=== PATIENT | female | born 1980 | race Caucasian/White ===

== ENCOUNTER 2018-07-07 08:01 | Emergency (ER) | payer SELFPAY ==
[~2018-07-07] VITALS: Ht 167.6 cm; Wt 80.2 kg
[2018-07-07 08:04] VITALS: BP 117/72; PULSE 95; RESP 18; Ht 167.6 cm; Wt 80.2 kg
[2018-07-07] MEDS ORDERED: OXYC-279 PO (08:29)
[2018-07-07] MEDS ORDERED: VALA500T PO (08:29)
[2018-07-07] MEDS ORDERED: OXYCODONE/ACETAMINOPHEN (5/325) TAB PO ONE (08:30)
--- NOTE | 2018-07-07 08:39 | ERD ---
ER Documentation Chief Complaint Chief Complaint rash, blisters on left side of shoulder and upper back HPI 38-year-old female presents with complaint of rash with blisters over the left side of her neck, shoulder, and upper back. States that she noticed it 2 days ago. States that is been getting worse since then. States that it is painful. Has had chickenpox as a child. Denies any treatments. Denies any allergies to medications. Denies any medical problems. Denies any fevers, chills, vision problems, hearing problems, facial paralysis, tinnitus, pain in her ear. ROS All systems reviewed and are negative except as per history of present illness. Medications Home Meds Active Scripts Prednisone* (Prednisone*) 20 Mg Tab, 40 MG PO BID for 5 Days, TAB Prov:ROBINSON FRAGA 07/07/18 valAcyclovir Hcl* (valACYclovir Hcl*) 500 Mg Tablet, 1000 MG PO TID for herpes zoster for 7 Days, TAB Prov:ROBINSON FRAGA 07/07/18 Oxycodone HCl/Acetaminophen (Percocet 5-325 mg Tablet) 1 Each Tablet, 1-2 EACH PO Q6 for herpes zoster, #10 TAB Prov:ROBINSON FRAGA 07/07/18 Allergies Allergies: Coded Allergies: No Known Allergy (Verified Allergy, Unknown, 09/30/06) PMhx/Soc Medical and Surgical Hx: pt denies Medical Hx History of Surgery: Yes (Tubal ligation, appendectomy) Anesthesia Reaction: No Hx Alcohol Use: No (denies ) Hx Substance Use: No (denies) Hx Tobacco Use: No (denies) Smoking Status: Never smoker FmHx Family History: No diabetes, No coronary disease, No other Physical Exam Vitals Vital Signs Date Temp Pulse Resp B/P (MAP) Pulse Ox O2 O2 Flow FiO2 Time Delivery Rate 07/07/18 98.1 95 18 117/72 98 08:04 (87) Physical Exam Const: No acute distress Head: Atraumatic Eyes: Normal Conjunctiva ENT: Normal External Ears, Nose and Mouth. Nose exhibits no lesions. TMs are pearly irvin and nonbulging bilaterally. There is no erythema or sign of rash in the ear canal or eardrum. TMs are nonedematous erythematous bilaterally. Neck: Full range of motion. No meningismus. Resp: Clear to auscultation bilaterally Cardio: Regular rate and rhythm, no murmurs Abd: Soft, non tender, non distended. Normal bowel sounds Skin: Vesicular lesions on erythematous base located over the left side of her neck, left shoulder, and upper back. Back: No midline or flank tenderness Ext: No cyanosis, or edema Neur: Awake and alert. EOMs 1 through 12 intact. Psych: Normal Mood and Affect Results 24 hrs Laboratory Tests Test 07/07/18 08:43 POC Beta HCG, Qualitative NEGATIVE Current Medications Medications Dose Sig/Dino Start Time Status Last (Trade) Ordered Route PRN Stop Time Admin Dose Reason Admin Oxycodone/ 1 tab ONCE ONCE 07/07/18 DC 07/07/18 Acetaminophen PO 08:30 08:42 (Percocet 07/07/18 08:31 (5/ 325)) Procedures/MDM MDM: Patient's presentation was consistent with herpes zoster. Since the rash was close to the ear there was concern about it becoming herpes zoster onychosis therefore patient was prescribed steroids in addition to valacyclovir. I have low suspicion for herpes zoster ophthalmicus, SSS, Kawasaki disease, scarlet fever, necrotizing fasciitis, sepsis, gangrene, Sam-Jt syndrome, toxic epidural necrolysis, abscess, cellulitis, anaphylaxis, allergic reaction. Patient discharged with strict ER precautions. Patient advised to follow up with PMD. All questions answered at discharge. Departure Diagnosis: Primary Impression: Herpes zoster Herpes zoster complications: without complications Qualified Codes: B02.9 - Zoster without complications Condition: Stable Patient Instructions: Shingles (Herpes Zoster) Referrals: [facility] YOU HAVE RECEIVED A MEDICAL SCREENING EXAM AND THE RESULTS INDICATE THAT YOU DO NOT HAVE A CONDITION THAT REQUIRES URGENT TREATMENT IN THE EMERGENCY DEPARTMENT. FURTHER EVALUATION AND TREATMENT OF YOUR CONDITION CAN WAIT UNTIL YOU ARE SEEN IN YOUR DOCTORS OFFICE WITHIN THE NEXT 1-2 DAYS. IT IS YOUR RESPONSIBILITY TO MAKE AN APPOINTMENT FOR FOLOW-UP CARE. IF YOU HAVE A PRIMARY DOCTOR --you should call your primary doctor and schedule an appointment IF YOU DO NOT HAVE A PRIMARY DOCTOR YOU CAN CALL OUR PHYSICIAN REFERRAL HOTLINE AT IF YOU CAN NOT AFFORD TO SEE A PHYSICIAN YOU CAN CHOSE FROM THE FOLLOWING [facility] [id number] [address] [facility] [address] [facility] [address] [facility] [address] [facility]. [facility] [address] Additional Instructions: FOLLOW UP WITH YOUR PRIMARY CARE PHYSICIAN TOMORROW.Return to this facility if you are not improving as expected. ROBINSON FRAGA July 07, 2018 08:39
[2018-07-07] MEDS ORDERED: PRED20TA PO (08:45)
== END 2018-07-07 09:25 | disposition home or self-care (01) ==
LOC: FTE 08:01
DX: B02.9 Zoster without complications (principal)
CPT/HCPCS: 81025; 99283